=== PATIENT | female | born 1985 | race African-American/Black ===

== ENCOUNTER 2016-11-28 10:17 | Emergency (ER) | payer OTHER, SELFPAY ==
[2016-11-28 11:11] LABS: BASO % 0.5 % (0.0-1.0); EOS # 0.2 K/mm3 (0.0-0.50); EOS % 2.4 % (0.0-3.0); LARGE UNSTAINED CELL # 0.1 K/mm3 (0.0-0.4); LARGE UNSTAINED CELL % 1.4 % (0.0-4.0); LYMPH # 1.9 K/mm3 (1.5-4.5); LYMPH % 18.7 % (24.0-44.0); MEAN CORPUSCULAR HEMOGLOBIN 29.5 pg (27.0-33.0); MEAN CORPUSCULAR HGB CONC 32.3 g/dl (32.0-36.5); MEAN CORPUSCULAR VOLUME 91.2 fl (80.0-96.0); MONO # 0.5 K/mm3 (0.0-0.8); MONO % 5.8 % (0.0-5.0); NEUTROPHILS # 6.6 K/mm3 (1.8-7.7); NEUTROPHILS % 71.3 % (36.0-66.0); PLATELET COUNT, AUTOMATED 248 k/mm3 (150-450); WHITE BLOOD COUNT 9.2 K/mm3 (4.0-10.0)
--- NOTE | 2016-11-28 11:41 | EDDOCDS ---
Physician Documentation [facility] Name: Matilde Roland Age: 31 yrs Sex: Female : 1985 Arrival Date: 11/28/2016 Time: 10:17 Bed PR Private MD: Disposition: 11/28/16 11:25 Discharged to Home/Self Care. Impression: Otitis media, unspecified. - Condition is Stable. - Prescriptions for Augmentin 875- 125 mg Oral Tablet - take 1 tablet by ORAL route every 12 hours for 10 days; 20 tablet. Saline Nasal 0.65 % - spray 1 spray by INTRANASAL route as directed 1 spray in each nostril before all feeding and sleep times; 1 bottle. Fluticasone 50 mcg/actuation Nasal [place], Suspension - inhale 2 spray by INTRANASAL route once daily; 1 bottle. - Medication Reconciliation, Local Pharmacy Hours form. - Follow up: Emergency Department; When: As soon as possible; Reason: Worsening of conditions. Follow up: Private Physician; When: 2 - 3 days; Reason: Recheck today's complaints. - Problem is new. - Symptoms are unchanged. Historical: - Allergies: no known allergies; - Home Meds: 1. multivitamin Oral tab daily - PMHx: none; - PSHx: colposcopy; - Social history: Smoking status: Patient states was never smoker of tobacco. No barriers to communication noted, The patient speaks fluent Luxembourgish, Speaks appropriately for age. - Family history: Not pertinent. - : The pt / caregiver states he / she is not on anticoagulants. Home medication list is obtained from the patient. - Exposure Risk Screening:: None identified. 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 7 in. (170.18 cm) (R); 10:47 Temp 99.3(O); jam1 11:31 BP 110 / 75; Pulse 75; Resp 18; Temp 97.1(O); Pulse Ox 98% on R/A; Pain 6/10; dem1 10:20 Body Mass Index 19.58 (56.70 kg, 170.18 cm) lr2 MDM: 10:37 Strep Screen, Nursing ordered. ef1 10:43 Financial registration complete. lg 10:47 GATS (NEGATIVE STREP SCREEN) Ordered. EDMS 10:58 CBC with Diff Ordered. EDMS 11:10 [facility] Payment Agreement was scanned into [employer] and attached to record. lg 11:22 CBC with Diff Reviewed. jk8 Signatures: Dispatcher [employer] EDMS Arlyn Azevedo, RAPHAEL RN srm Lucian Rose, Reg Reg lg Arielle Peña, GRACEC PAAnnaC ef1 Moses Ramsey PA-C PA-C jk8 The chart was reviewed and I authenticate all verbal orders and agree with the evaluation and treatment provided.Attachments: 11:10 [facility] Payment Agreement lg MTDD
--- NOTE | 2016-11-28 11:41 | EDDOCDS ---
Nurse's Notes [facility] Name: Matilde Roland Age: 31 yrs Sex: Female : 1985 Arrival Date: 11/28/2016 Time: 10:17 Bed PR1 Private MD: Diagnosis: Otitis media, unspecified Presentation: 11/28 10:32 Presenting complaint: Patient states: right ear ache since last night. sore throat and srm fever since thurs night. undocumented fever. has been using tea and OTC meds for symptoms. sore throat. Presenting complaint: Patient states: runny nose and cough. Adult Sepsis Screening: The patient does not have new or worsening altered mentation. Patient's respiratory rate is less than 22. Systolic blood pressure is greater than 100. Patient has a qSOFA score of 0- Negative Sepsis Screen. Suicide/Homicide risk assessment- the patient denies having any suicidal and/or homicidal ideations and does not present with any other emotional, behavioral or mental health complaints. Status: Patient is not a automobile service station mechanic or dependent. Transition of care: patient was not received from another setting of care. 10:32 Acuity: KEN Level 4 srm 10:32 Method Of Arrival: Walkin/Carried/Asstd srm Triage Assessment: 10:34 General: Appears in no apparent distress, Behavior is appropriate for age, cooperative. srm Pain: Pain currently is 9 out of 10 on a pain scale. 10:34 HIV screening NA for this visit Offered previously. 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 multivitamin Oral tab daily - PMHx: none; - PSHx: colposcopy; - Social history: Smoking status: Patient states was never smoker of tobacco. No barriers to communication noted, The patient speaks fluent Lao, Speaks appropriately for age. - Family history: Not pertinent. - : The pt / caregiver states he / she is not on anticoagulants. Home medication list is obtained from the patient. - Exposure Risk Screening:: None identified. Screenin:34 Screening information is obtained from the patient. Fall risk: No risks identified. srm Assistance ADL's: requires no assistance with activities of daily living. Abuse/DV Screen: The patient / caregiver reports he/she is: not in a situation that causes fear, pain or injury. Nutritional screening: No deficits noted. Advance Directives: Currently, there is no health care proxy. There is no Power of Drill Sharpener Operator. home support is adequate. Assessment: 10:47 General: Appears in no apparent distress, Behavior is appropriate for age, cooperative. srm EENT: Throat is reddened has enlarged tonsils on right. Respiratory: No deficits noted. GI: No deficits noted. Derm: No deficits noted. 11:39 Reassessment: Patient appears in no apparent distress at this time. [facility] Vital Signs: 10:20 BP 113 / 66; Pulse 86; Resp 17; Temp 99.6(T); Pulse Ox 97% on R/A; Weight 56.7 kg (R); lr2 Height 5 ft. 7 in. (170.18 cm) (R); 10:47 Temp 99.3(O); jam1 11:31 BP 110 / 75; Pulse 75; Resp 18; Temp 97.1(O); Pulse Ox 98% on R/A; Pain 6/10; dem1 10:20 Body Mass Index 19.58 (56.70 kg, 170.18 cm) lr2 Vitals: 10:20 Log In Time: November 28, 2016 at 10:17. lr2 10:46 Strep Screen is obtained and tested: Negative, a GATSNEG culture is ordered in [facility] and sent. ED Course: 10:19 Patient visited by Ashley Amaro. lr2 10:19 Patient moved to Waiting lr2 10:21 Patient moved to Pre RCE lr2 10:33 Triage Initiated srm 10:34 The patient / caregiver is instructed regarding the plan of care and ED course. Patient srm has correct armband on for positive identification. 10:35 Patient moved to Triage 3 srm 10:36 Arielle Peña PA-C is PHCP. ef1 10:36 Rhina Parish MD is Attending Physician. ef1 10:37 Patient visited by Arielle Peña PA-C. ef1 10:47 Patient visited by Arlyn Azevedo, RAPHAEL. srm 10:48 Patient visited by Arlyn Azevedo, RAPHAEL. srm 10:48 PHCP role handed off by Arielle Peña PA-C jk8 10:48 Moses Ramsey PA-C is PHCP. jk8 10:48 GATS (NEGATIVE STREP SCREEN) Sent. srm 11:02 Patient visited by Arlyn Azevedo RN. srm 11:02 Patient moved to TR srm 11:02 CBC with Diff Sent. srm 11:10 [facility] Payment Agreement was scanned into [employer] and attached to record. lg 11:21 Patient moved to PR dem1 11:32 Patient visited by Yi Evans. dem1 11:39 No IV's were initiated during this patient's visit. No procedures done that require [facility] assistance. Order Results: Lab Order: CBC with Diff; SPEC'M 11/28/16 11:00 Test: WHITE BLOOD COUNT; Value: 9.2; Range: 4.0-10.0; Units: K/mm3; Status: F Test: RED BLOOD COUNT; Value: 4.31; Range: 4.00-5.40; Units: M/mm3; Status: F Test: HEMOGLOBIN; Value: 12.7; Range: 12.0-16.0; Units: g/dl; Status: F Test: HEMATOCRIT; Value: 39.3; Range: 36.0-47.0; Units: %; Status: F Test: MEAN CORPUSCULAR VOLUME; Value: 91.2; Range: 80.0-96.0; Units: fl; Status: F Test: MEAN CORPUSCULAR HEMOGLOBIN; Value: 29.5; Range: 27.0-33.0; Units: pg; Status: F Test: MEAN CORPUSCULAR HGB CONC; Value: 32.3; Range: 32.0-36.5; Units: g/dl; Status: F Test: RED CELL DISTRIBUTION WIDTH; Value: 12.0; Range: 11.5-14.5; Units: %; Status: F Test: PLATELET COUNT, AUTOMATED; Value: 248; Range: 150-450; Units: k/mm3; Status: F Test: NEUTROPHILS %; Value: 71.3; Range: 36.0-66.0; Abnormal: Above high normal; Units: %; Status: F Test: LYMPH %; Value: 18.7; Range: 24.0-44.0; Abnormal: Below low normal; Units: %; Status: F Test: MONO %; Value: 5.8; Range: 0.0-5.0; Abnormal: Above high normal; Units: %; Status: F Test: EOS %; Value: 2.4; Range: 0.0-3.0; Units: %; Status: F Test: BASO %; Value: 0.5; Range: 0.0-1.0; Units: %; Status: F Test: LARGE UNSTAINED CELL %; Value: 1.4; Range: 0.0-4.0; Units: %; Status: F Test: NEUTROPHILS #; Value: 6.6; Range: 1.8-7.7; Units: K/mm3; Status: F Test: LYMPH #; Value: 1.9; Range: 1.5-4.5; Units: K/mm3; Status: F Test: MONO #; Value: 0.5; Range: 0.0-0.8; Units: K/mm3; Status: F Test: EOS #; Value: 0.2; Range: 0.0-0.50; Units: K/mm3; Status: F Test: BASO #; Value: 0.0; Range: 0.0-0.2; Units: K/mm3; Status: F Test: LARGE UNSTAINED CELL #; Value: 0.1; Range: 0.0-0.4; Units: K/mm3; Status: F Outcome: 11:25 Discharge ordered by Provider. jk8 11:39 Discharge Assessment: Patient awake, alert and oriented x 3. No cognitive and/or srm functional deficits noted. Patient verbalized understanding of disposition instructions. patient administered narcotics - no. The following High Risk Discharge criteria are identified: None. Discharged to home ambulatory. Condition: good Condition: stable. Discharge instructions given to patient, Instructed on discharge instructions, follow up and referral plans. medication usage, Demonstrated understanding of instructions, medications, Pt was receptive of discharge instructions/ teaching. Prescriptions given X 3. No special radiology studies were completed. Property sent home with patient. 11:40 Patient left the ED. srm Signatures: Arlyn Azevedo, RN RN srm Yue Camarillo, LYNDA POULTRY DEBEAKER al1 Lucian Rose, Mac Reg lg Arielle Peña PA-C PA-C ef1 Yi Evans1 Moses Ramsey PA-C PA-C jk8 Ashley Amaro lr2 MARTHAD
--- NOTE | 2016-11-30 12:41 | EDDOCDS ---
Physician Documentation [facility] Name: Matilde Roland Age: 31 yrs Sex: Female : 1985 Arrival Date: 11/28/2016 Time: 10:17 Bed PR Private MD: Disposition: 11/28/16 11:25 Discharged to Home/Self Care. Impression: Otitis media, unspecified. - Condition is Stable. - Prescriptions for Augmentin 875- 125 mg Oral Tablet - take 1 tablet by ORAL route every 12 hours for 10 days; 20 tablet. Saline Nasal 0.65 % - spray 1 spray by INTRANASAL route as directed 1 spray in each nostril before all feeding and sleep times; 1 bottle. Fluticasone 50 mcg/actuation Nasal [place], Suspension - inhale 2 spray by INTRANASAL route once daily; 1 bottle. - Medication Reconciliation, Local Pharmacy Hours form. - Follow up: Emergency Department; When: As soon as possible; Reason: Worsening of conditions. Follow up: Private Physician; When: 2 - 3 days; Reason: Recheck today's complaints. - Problem is new. - Symptoms are unchanged. Historical: - Allergies: no known allergies; - Home Meds: 1. multivitamin Oral tab daily - PMHx: none; - PSHx: colposcopy; - Social history: Smoking status: Patient states was never smoker of tobacco. No barriers to communication noted, The patient speaks fluent Maori, Speaks appropriately for age. - Family history: Not pertinent. - : The pt / caregiver states he / she is not on anticoagulants. Home medication list is obtained from the patient. - Exposure Risk Screening:: None identified. 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 7 in. (170.18 cm) (R); 10:47 Temp 99.3(O); jam1 11:31 BP 110 / 75; Pulse 75; Resp 18; Temp 97.1(O); Pulse Ox 98% on R/A; Pain 6/10; dem1 10:20 Body Mass Index 19.58 (56.70 kg, 170.18 cm) lr2 MDM: 10:37 Strep Screen, Nursing ordered. ef1 10:43 Financial registration complete. lg 10:47 GATS (NEGATIVE STREP SCREEN) Ordered. EDMS 10:58 CBC with Diff Ordered. EDMS 11:10 [facility] Payment Agreement was scanned into [employer] and attached to record. lg 11:22 CBC with Diff Reviewed. jk8 16:00 T-Sheet-- Draft Copy was scanned into [employer] and attached to record. klr Signatures: Dispatcher [employer] EDMS Arlyn Azevedo, RN RN srm Lucian Rose, Reg Reg lg Arielle Peña PA-C PA-C ef1 Moses Ramsey PA-C PA-C jk8 Alexandra Jamesr The chart was reviewed and I authenticate all verbal orders and agree with the evaluation and treatment provided.Attachments: 11:10 [facility] Payment Agreement lg 16:00 T-Sheet-- Draft Copy klr Chart Complete MTDD
--- NOTE | 2016-11-30 12:41 | EDDOCDS ---
Nurse's Notes [facility] Name: Matilde Roland Age: 31 yrs Sex: Female : 1985 Arrival Date: 11/28/2016 Time: 10:17 Bed PR1 Private MD: Diagnosis: Otitis media, unspecified Presentation: 11/28 10:32 Presenting complaint: Patient states: right ear ache since last night. sore throat and srm fever since thurs night. undocumented fever. has been using tea and OTC meds for symptoms. sore throat. Presenting complaint: Patient states: runny nose and cough. Adult Sepsis Screening: The patient does not have new or worsening altered mentation. Patient's respiratory rate is less than 22. Systolic blood pressure is greater than 100. Patient has a qSOFA score of 0- Negative Sepsis Screen. Suicide/Homicide risk assessment- the patient denies having any suicidal and/or homicidal ideations and does not present with any other emotional, behavioral or mental health complaints. Status: Patient is not a hospital tray service worker or dependent. Transition of care: patient was not received from another setting of care. 10:32 Acuity: KEN Level 4 srm 10:32 Method Of Arrival: Walkin/Carried/Asstd srm Triage Assessment: 10:34 General: Appears in no apparent distress, Behavior is appropriate for age, cooperative. srm Pain: Pain currently is 9 out of 10 on a pain scale. 10:34 HIV screening NA for this visit Offered previously. 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 multivitamin Oral tab daily - PMHx: none; - PSHx: colposcopy; - Social history: Smoking status: Patient states was never smoker of tobacco. No barriers to communication noted, The patient speaks fluent Slovak, Speaks appropriately for age. - Family history: Not pertinent. - : The pt / caregiver states he / she is not on anticoagulants. Home medication list is obtained from the patient. - Exposure Risk Screening:: None identified. Screenin:34 Screening information is obtained from the patient. Fall risk: No risks identified. srm Assistance ADL's: requires no assistance with activities of daily living. Abuse/DV Screen: The patient / caregiver reports he/she is: not in a situation that causes fear, pain or injury. Nutritional screening: No deficits noted. Advance Directives: Currently, there is no health care proxy. There is no Power of Tie Fastener. home support is adequate. Assessment: 10:47 General: Appears in no apparent distress, Behavior is appropriate for age, cooperative. srm EENT: Throat is reddened has enlarged tonsils on right. Respiratory: No deficits noted. GI: No deficits noted. Derm: No deficits noted. 11:39 Reassessment: Patient appears in no apparent distress at this time. [facility] Vital Signs: 10:20 BP 113 / 66; Pulse 86; Resp 17; Temp 99.6(T); Pulse Ox 97% on R/A; Weight 56.7 kg (R); lr2 Height 5 ft. 7 in. (170.18 cm) (R); 10:47 Temp 99.3(O); jam1 11:31 BP 110 / 75; Pulse 75; Resp 18; Temp 97.1(O); Pulse Ox 98% on R/A; Pain 6/10; dem1 10:20 Body Mass Index 19.58 (56.70 kg, 170.18 cm) lr2 Vitals: 10:20 Log In Time: November 28, 2016 at 10:17. lr2 10:46 Strep Screen is obtained and tested: Negative, a GATSNEG culture is ordered in [facility] and sent. ED Course: 10:19 Patient visited by Ashley Amaro. lr2 10:19 Patient moved to Waiting lr2 10:21 Patient moved to Pre RCE lr2 10:33 Triage Initiated srm 10:34 The patient / caregiver is instructed regarding the plan of care and ED course. Patient srm has correct armband on for positive identification. 10:35 Patient moved to Triage 3 srm 10:36 Arielle Peña PA-C is PHCP. ef1 10:36 Rhina Parish MD is Attending Physician. ef1 10:37 Patient visited by Arielle Peña PA-C. ef1 10:47 Patient visited by Arlyn Azevedo, RAPHAEL. srm 10:48 Patient visited by Arlyn Azevedo, RAPHAEL. srm 10:48 PHCP role handed off by Arielle Peña PA-C jk8 10:48 Moses Ramsey PA-C is PHCP. jk8 10:48 GATS (NEGATIVE STREP SCREEN) Sent. srm 11:02 Patient visited by Arlyn Azevedo RN. srm 11:02 Patient moved to TR1 srm 11:02 CBC with Diff Sent. srm 11:10 [facility] Payment Agreement was scanned into [employer] and attached to record. lg 11:21 Patient moved to PR dem1 11:32 Patient visited by Yi Evans. dem1 11:39 No IV's were initiated during this patient's visit. No procedures done that require [facility] assistance. 16:00 T-Sheet-- Draft Copy was scanned into [employer] and attached to record. klr Order Results: Lab Order: GATS (NEGATIVE STREP SCREEN); SPEC'M 11/28/16 10:38 Test: GATS CULTURE (NEG STREP SCR); Value: GATS RESULT NEGATIVE FOR STREP PYOGENES (GROUP A); Status: F Test: GATS CULTURE (NEG STREP SCR); Value: <EXTERNAL COMMENT eCWMed> FULL REPORT IN LAB NOTES (eCW and Medent).; Status: F Test: GATS CULTURE (NEG STREP SCR); Value: ORGANISM 1: STREPTOCOCCUS GROUP C; Status: F Test: GATS CULTURE (NEG STREP SCR); Value: STREPTOCOCCUS GROUP C; Status: F Test: GATS CULTURE (NEG STREP SCR); Value: QUANTITY OF GROWTH MODERATE; Status: F Lab Order: CBC with Diff; SPEC'M 11/28/16 11:00 Test: WHITE BLOOD COUNT; Value: 9.2; Range: 4.0-10.0; Units: K/mm3; Status: F Test: RED BLOOD COUNT; Value: 4.31; Range: 4.00-5.40; Units: M/mm3; Status: F Test: HEMOGLOBIN; Value: 12.7; Range: 12.0-16.0; Units: g/dl; Status: F Test: HEMATOCRIT; Value: 39.3; Range: 36.0-47.0; Units: %; Status: F Test: MEAN CORPUSCULAR VOLUME; Value: 91.2; Range: 80.0-96.0; Units: fl; Status: F Test: MEAN CORPUSCULAR HEMOGLOBIN; Value: 29.5; Range: 27.0-33.0; Units: pg; Status: F Test: MEAN CORPUSCULAR HGB CONC; Value: 32.3; Range: 32.0-36.5; Units: g/dl; Status: F Test: RED CELL DISTRIBUTION WIDTH; Value: 12.0; Range: 11.5-14.5; Units: %; Status: F Test: PLATELET COUNT, AUTOMATED; Value: 248; Range: 150-450; Units: k/mm3; Status: F Test: NEUTROPHILS %; Value: 71.3; Range: 36.0-66.0; Abnormal: Above high normal; Units: %; Status: F Test: LYMPH %; Value: 18.7; Range: 24.0-44.0; Abnormal: Below low normal; Units: %; Status: F Test: MONO %; Value: 5.8; Range: 0.0-5.0; Abnormal: Above high normal; Units: %; Status: F Test: EOS %; Value: 2.4; Range: 0.0-3.0; Units: %; Status: F Test: BASO %; Value: 0.5; Range: 0.0-1.0; Units: %; Status: F Test: LARGE UNSTAINED CELL %; Value: 1.4; Range: 0.0-4.0; Units: %; Status: F Test: NEUTROPHILS #; Value: 6.6; Range: 1.8-7.7; Units: K/mm3; Status: F Test: LYMPH #; Value: 1.9; Range: 1.5-4.5; Units: K/mm3; Status: F Test: MONO #; Value: 0.5; Range: 0.0-0.8; Units: K/mm3; Status: F Test: EOS #; Value: 0.2; Range: 0.0-0.50; Units: K/mm3; Status: F Test: BASO #; Value: 0.0; Range: 0.0-0.2; Units: K/mm3; Status: F Test: LARGE UNSTAINED CELL #; Value: 0.1; Range: 0.0-0.4; Units: K/mm3; Status: F Outcome: 11:25 Discharge ordered by Provider. jk8 11:39 Discharge Assessment: Patient awake, alert and oriented x 3. No cognitive and/or srm functional deficits noted. Patient verbalized understanding of disposition instructions. patient administered narcotics - no. The following High Risk Discharge criteria are identified: None. Discharged to home ambulatory. Condition: good Condition: stable. Discharge instructions given to patient, Instructed on discharge instructions, follow up and referral plans. medication usage, Demonstrated understanding of instructions, medications, Pt was receptive of discharge instructions/ teaching. Prescriptions given X 3. No special radiology studies were completed. Property sent home with patient. 11:40 Patient left the ED. srm 11/29 12:21 GATS reviewed,pt treated appropriately.:. [facility] Signatures: Fátima Burgos, RN RN kpArlyn Hewitt RN RN srm Yue Camarillo, TUBE SPLICER TUBE SPLICER al1 Lucian Rose, Mac Reg lg Arielle Peña PA-C PA-C ef1 Yi Evans1 Moses Ramsey PA-C PA-C jk8 Alexandra James Laura lr2 Chart Complete MTDD
--- NOTE | 2016-11-30 12:41 | EDDOCDS ---
Physician Documentation [facility] Name: Matilde Roland Age: 31 yrs Sex: Female : 1985 Arrival Date: 11/28/2016 Time: 10:17 Bed PR Private MD: Disposition: 11/28/16 11:25 Discharged to Home/Self Care. Impression: Otitis media, unspecified. - Condition is Stable. - Prescriptions for Augmentin 875- 125 mg Oral Tablet - take 1 tablet by ORAL route every 12 hours for 10 days; 20 tablet. Saline Nasal 0.65 % - spray 1 spray by INTRANASAL route as directed 1 spray in each nostril before all feeding and sleep times; 1 bottle. Fluticasone 50 mcg/actuation Nasal [place], Suspension - inhale 2 spray by INTRANASAL route once daily; 1 bottle. - Medication Reconciliation, Local Pharmacy Hours form. - Follow up: Emergency Department; When: As soon as possible; Reason: Worsening of conditions. Follow up: Private Physician; When: 2 - 3 days; Reason: Recheck today's complaints. - Problem is new. - Symptoms are unchanged. Historical: - Allergies: no known allergies; - Home Meds: 1. multivitamin Oral tab daily - PMHx: none; - PSHx: colposcopy; - Social history: Smoking status: Patient states was never smoker of tobacco. No barriers to communication noted, The patient speaks fluent Persian, Speaks appropriately for age. - Family history: Not pertinent. - : The pt / caregiver states he / she is not on anticoagulants. Home medication list is obtained from the patient. - Exposure Risk Screening:: None identified. 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 7 in. (170.18 cm) (R); 10:47 Temp 99.3(O); jam1 11:31 BP 110 / 75; Pulse 75; Resp 18; Temp 97.1(O); Pulse Ox 98% on R/A; Pain 6/10; dem1 10:20 Body Mass Index 19.58 (56.70 kg, 170.18 cm) lr2 MDM: 10:37 Strep Screen, Nursing ordered. ef1 10:43 Financial registration complete. lg 10:47 GATS (NEGATIVE STREP SCREEN) Ordered. EDMS 10:58 CBC with Diff Ordered. EDMS 11:10 [facility] Payment Agreement was scanned into [employer] and attached to record. lg 11:22 CBC with Diff Reviewed. jk8 16:00 T-Sheet-- Draft Copy was scanned into [employer] and attached to record. klr Signatures: Dispatcher [employer] EDMS Arlyn Azevedo, RN RN srm Lucian Rose, Reg Reg lg Arielle Peña PA-C PA-C ef1 Moses Ramsey PA-C PA-C jk8 Alexandra Jamesr The chart was reviewed and I authenticate all verbal orders and agree with the evaluation and treatment provided.Attachments: 11:10 [facility] Payment Agreement lg 16:00 T-Sheet-- Draft Copy klr Chart Complete MTDD
== END 2016-11-28 11:40 | disposition home or self-care (01) ==
LOC: M ED 10:17
DX: H66.90 Otitis media, unspecified, unspecified ear (principal); J02.8 Acute pharyngitis due to other specified organisms; Z79.899 Other long term (current) drug therapy